=== PATIENT | male | born 1970 | race Caucasian/White ===

== ENCOUNTER 2019-06-02 07:48 | Observation (INO) | payer OTHER ==
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
--- NOTE | 2019-06-02 09:15 | CR ---
INDICATION: Chest wall pain. Shortness breath. COMPARISON: none TECHNIQUE: PA chest and left ribs. FINDINGS: Mildly displaced fractures are noted within the anterolateral left 3rd through 8th ribs. There is an accompanying pleural hematoma and trace amount of pleural fluid blunting the left costophrenic angle. There is no evidence of a pneumothorax or pneumomediastinum. The right thorax appears clear. The heart and pulmonary vessels are normal in size. IMPRESSION: Fractures identified within the left 3rd through 8th ribs. Dictated by Danie Quan MD @ Jun 02 2019 9:11AM Signed by Dr. Danie Quan @ Jun 02 2019 9:14AM
[2019-06-02] MEDS ORDERED: Acetaminophen/HYDROcodone 325-5 MG Tab PO ONE (09:27)
[2019-06-02] MEDS ORDERED: Morphine 2 MG/ML Syringe IVPUSH PRN (09:42)
[2019-06-02] MEDS ORDERED: Ibuprofen 600 MG Tab PO PRN (09:43)
[2019-06-02] MEDS ORDERED: Ketorolac 30 MG/ML SDV IVPUSH PRN (09:43)
[2019-06-02] MEDS ORDERED: Acetaminophen/HYDROcodone 325-5 MG Tab PO PRN (09:43)
[2019-06-02] MEDS ORDERED: Enoxaparin 40 MG/0.4 ML Syringe SUBCUT SCH (09:45)
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
[2019-06-02 14:30] LABS: BLOOD UREA NITROGEN,BUN 13 mg/dL (7.0-18.0); CHLORIDE,CL 104 mmol/L (98-107); GLUCOSE RANDOM 138 mg/dL (74-106); SODIUM,NA 140 mmol/L (136-148)
--- NOTE | 2019-06-02 16:49 | CR ---
Indication: Pleural hematoma. Technique: PA and lateral views the chest were obtained. Comparison: Study from earlier today. The current study is dated 1616 hours. Findings: Blunting of left costophrenic angle is identified. Multiple left-sided rib fractures are re-identified. A small left apical pneumothorax is identified. The right lung is clear. Heart is normal in size. Impression: Multiple left-sided rib fractures. Blunting of left costophrenic angle, most likely representing a pleural effusion. Tiny left apical pneumothorax. Dictated by Patricia Pollard MD @ Jun 02 2019 4:46PM Signed by Dr. Patricia Pollard @ Jun 02 2019 4:48PM
[2019-06-02] MEDS ORDERED: Labetalol 100 MG/20 ML MDV IVPUSH ONE (17:15)
[2019-06-02] MEDS ORDERED: Ketorolac 30 MG/ML SDV IVPUSH ONE (17:44)
[2019-06-03] MEDS ORDERED: LISINOPRIL PO SCH (09:00)
[2019-06-03] MEDS ORDERED: HYDROCHLOROTHIAZIDE PO SCH (09:00)
== END 2019-06-02 18:15 | disposition home or self-care (01) ==
LOC: MW.ED 07:48 → MW.MS 09:39
PROVIDERS: ADMIT Student in an Organized Health Care Education/Training Program; ATTEND Student in an Organized Health Care Education/Training Program
DX: S22.42XA Multiple fractures of ribs, left side, initial encounter for closed fracture (principal); J93.9 Pneumothorax, unspecified; I10 Essential (primary) hypertension; W18.40XA Slipping, tripping and stumbling without falling, unspecified, initial encounter; Z88.0 Allergy status to penicillin; Z88.2 Allergy status to sulfonamides; Z79.899 Other long term (current) drug therapy
CPT/HCPCS: 36415; 71046; 71101; 80048; 85025; 96374; A9270; G0378; J1885; 99285-25; J3490

== ENCOUNTER 2019-11-19 00:50 | Emergency (ER) | payer SELFPAY ==
--- NOTE | 2019-11-19 01:06 | EDM.PDOC ---
ED HPI GENERAL MEDICAL PROBLEM - General Stated Complaint: SORE THROAT Time Seen by Provider: 11/19/19 00:51 Source of Information: Reports: Patient History Limitations: Reports: No Limitations - History of Present Illness INITIAL COMMENTS - FREE TEXT/NARRATIVE: HISTORY OF PRESENT ILLNESS: Patient is a 49-year-old male who complains of 3- day history of sore throat which he feels is affecting his entire mouth. Reports 7 out of 10 pain, worse with swallowing. Denies any sick contacts or recent travel. No fever chills. No recent rash. No chest pain or dyspnea. Triage note states vision going in and out butthe patient states that his cell phone screen appeared slightly blurry one time this afternoon and that resolved and he has had no trouble with his vision since that time. No weakness or paresthesias. No change in speech or gait. No abdominal pain. REVIEW OF SYSTEMS: Other than the symptoms associated with the present events, the following is reported with regard to recent health: General: (-) fever. HENT: (-) congestion. Respiratory: (-) dyspnea Cardiovascular: (-) chest pain. GI: (-) abdominal pain. : (-) urinary complaints. Musculoskeletal: (-) other aches or pains. Endocrine: (-) generalized weakness. Neurological: (-) localized weakness. Skin: (-) rash PAST MEDICAL HISTORY: reviewed as per nursing notes SOCIAL HISTORY: reviewed as per nursing notes, MEDICATIONS: Per nurse's note ALLERGIES: Per nurse's note, reviewed by me PHYSICAL EXAMINATION: GENERALIZED APPEARANCE: well developed, well nourished in no distress VITAL SIGNS: Per nurse's note, reviewed by me SKIN: Warm, dry; (-) cyanosis; (-) rash. HEAD: (-) scalp swelling, (-) tenderness. EYES: (-) conjunctival pallor, (-) scleral icterus. ENMT: (-) stridor; mucous membranes moist. pharyngeal erythema without exudate. uvula midline. no phonation changes. no trismus. airway widely patent. no gross lesions to gingiva or tongue, but patient reports pain to upper gums. no gross erythema or tenderness. no dental TTP. NECK: (-) tenderness, (-) stiffness, CHEST AND RESPIRATORY: (-) rales, (-) rhonchi, (-) wheezes; breath sounds equal bilaterally. HEART AND CARDIOVASCULAR: (-) irregularity; (-) murmur, (-) gallop. ABDOMEN AND GI: Soft; (-) tenderness, (-) guarding, (-) rebound, (-) palpable masses, EXTREMITIES: (-) deformity, (-) edema. NEURO AND PSYCH: Alert. Cranial nerves grossly intact; strength symmetric. gait steady DIAGNOSTICS: strep: negative EMERGENCY DEPARTMENT COURSE AND TREATMENT: Patient's condition remained stable during Emergency Department evaluation. Based on history, physical exam, and diagnostic evaluation, the patient has symptoms consistent with acute pharyngitis vs early stomatitis. There is no obvious swelling of the peritonsillar area or abscess. The airway appears patent and respiratory pattern is normal. The patient has no trismus and is tolerating oral food and fluid. He does report difficulty swallowing due to pain and therefore Decadron given for symptomatic improvement. He reports pain to mouth but there are no gross lesions at this time and no tenderness on examination. May represent early HSV, stomatitis or HFMD. No eye pain and brief episode of blurred vision while looking at his cell phone screen this afternoon resolved completely. Do not suspect Behcet's. As he has gingival/mouth pain, will treat symptomatically with lidocaine swish and spit. I felt that outpatient management with close followup by the patient's primary care provider in 1-2 days was appropriate. The patient's questions were answered, and discharge precautions and reasons to return to the clinic were discussed. The patient understands to return to the ED if symptoms do not improve as discussed, or if symptoms worsen. PLAN AND FOLLOW-UP: Patient received written and verbal instructions regarding this condition. Return to ED immediately with any new or worsening symptoms. Follow up to be arranged by patient with pcp in 1-2 days for further evaluation. Given discharge precautions. Patient expressed verbal understanding. throat Pain Score (Numeric/FACES): 7 - Related Data Allergies Allergy/AdvReac Type Severity Reaction Status Date / Time Penicillins Allergy Cannot Verified 06/02/19 11:43 Remember Sulfa (Sulfonamide Allergy Cannot Verified 06/02/19 11:43 Antibiotics) Remember Home Meds: Home Meds Lisinopril/Hydrochlorothiazide [Lisinopril-Hctz 20-25 mg Tab] 1 tab PO DAILY 07/09 [History] Lidocaine 2% [Xylocaine 2% Viscous] 5 ml .XX TID PRN 3 Days #1 bottle 11/19/19 [ Rx] Lidocaine 2% [Xylocaine 2% Viscous] 5 ml GARGLE TID PRN #1 bottle 11/19/19 [Rx] Past Medical History Cardiovascular History: Reports: Hypertension Respiratory History: Reports: Sleep Apnea Musculoskeletal History: Reports: Other (See Below) Other Musculoskeletal History: left rib fractures 3-8 Psychiatric History: Reports: Anxiety - Infectious Disease History Infectious Disease History: Reports: Chicken Pox - Past Surgical History GI Surgical History: Reports: Appendectomy, Other (See Below) Other GI Surgeries/Procedures: adhesions Social & Family History - Family History Family Medical History: Noncontributory - Caffeine Use Caffeine Use: Reports: Coffee, Tea ED ROS ENT - Review of Systems Review Of Systems: See Below (see dictation) ED EXAM, ENT - Physical Exam Exam: See Below (see dictation) Course - Vital Signs Last Recorded V/S: Last Vital Signs Temp 97.6 F 11/19/19 00:55 Pulse 85 11/19/19 00:55 Resp 20 11/19/19 00:55 BP 170/74 H 11/19/19 00:55 Pulse Ox 95 11/19/19 00:55 - Orders/Labs/Meds Orders: Active Orders 24 hr Category Date Time Status CULTURE STREP A CONFIRMATION [] Stat Lab 11/19/19 01:01 Results STREP SCRN A RAPID W CULT CONF [] Stat Lab 11/19/19 01:01 Results Meds: Medications Discontinued Medications Generic Name Dose Route Start Last Admin Trade Name Freq PRN Reason Stop Dose Admin Dexamethasone 8 mg 11/19/19 01:16 11/19/19 01:22 Dexamethasone IM 11/19/19 01:17 8 mg ONETIME ONE Administration Departure - Departure Time of Disposition: 01:52 Disposition: Home, Self-Care 01 Condition: Good Clinical Impression: Pharyngitis, Stomatitis - Discharge Information *PRESCRIPTION DRUG MONITORING PROGRAM REVIEWED*: Not Applicable *COPY OF PRESCRIPTION DRUG MONITORING REPORT IN PATIENT TORITO: Not Applicable Prescriptions: Lidocaine 2% [Xylocaine 2% Viscous] 5 ml .XX TID PRN 3 Days #1 bottle PRN Reason: mouth pain Lidocaine 2% [Xylocaine 2% Viscous] 5 ml GARGLE TID PRN #1 bottle PRN Reason: mouth pain Instructions: Pharyngitis, Stomatitis Referrals: Rosalind Mansoor,Clinic [Ordering Only Provider] - 2 Days Forms: ED Department Discharge Additional Instructions: The following information is given to patients seen in the emergency department who are being discharged to home. This information is to outline your options for follow-up care. We provide all patients seen in our emergency department with a follow-up referral. The need for follow-up, as well as the timing and circumstances, are variable depending upon the specifics of your emergency department visit. If you don't have a primary care physician on staff, we will provide you with a referral. We always advise you to contact your personal physician following an emergency department visit to inform them of the circumstance of the visit and for follow-up with them and/or the need for any referrals to a consulting specialist. The emergency department will also refer you to a specialist when appropriate. This referral assures that you have the opportunity for follow-up care with a specialist. All of these measure are taken in an effort to provide you with optimal care, which includes your follow-up. Under all circumstances we always encourage you to contact your private physician who remains a resource for coordinating your care. When calling for follow-up care, please make the office aware that this follow-up is from your recent emergency room visit. If for any reason you are refused follow-up, please contact the [facility] Emergency Department at and asked to speak to the emergency department charge nurse. Sepsis Event Note - Focused Exam Vital Signs: Vital Signs Temp Pulse Resp BP Pulse Ox 11/19/19 00:55 97.6 F 85 20 170/74 H 95 Date Exam was Performed: 11/19/19 Time Exam was Performed: 01:52 - My Orders Last 24 Hours: My Active Orders 11/19/19 01:01 CULTURE STREP A CONFIRMATION [RM] Stat STREP SCRN A RAPID W CULT CONF [] Stat - Assessment/Plan Last 24 Hours: My Active Orders 11/19/19 01:01 CULTURE STREP A CONFIRMATION [RM] Stat STREP SCRN A RAPID W CULT CONF [] Stat
[2019-11-19] MEDS ORDERED: Dexamethasone 10 MG/ML SDV IM ONE (01:16)
== END 2019-11-19 01:54 | disposition home or self-care (01) ==
LOC: MW.ED 00:50
DX: J02.9 Acute pharyngitis, unspecified (principal); K12.1 Other forms of stomatitis; I10 Essential (primary) hypertension; Z88.0 Allergy status to penicillin; Z88.2 Allergy status to sulfonamides; Z79.899 Other long term (current) drug therapy
CPT/HCPCS: 87081; 87880; 96372; 99283; J1100; 99282